=== PATIENT | female | born 1975 | race Caucasian/White ===

== ENCOUNTER 2021-12-07 20:12 | Emergency (ER) | payer MEDICAID, OTHER, SELFPAY ==
--- NOTE | ~2021-12-07 | XR_ITS ---
EXAMINATION: XR hand wrist RT CLINICAL INFORMATION: Reason for Exam R wrist swelling COMPARISON: None. TECHNIQUE: PA, oblique and lateral views FINDINGS: No acute fracture or dislocation. Possible old healed fracture of the proximal fourth metacarpal Joint spaces and articular surfaces are maintained. No erosive changes. Soft tissues unremarkable. XR/XR hand wrist RT IMPRESSION: No acute osseous abnormalities.
[2021-12-07 20:43] VITALS: BP 198/90; PULSE 100; RESP 16; TEMP 36.2; O2SAT 99; BMI 24.8
--- NOTE | 2021-12-07 23:47 | ED.EXTPRO ---
HPI - Extremity Problem General Chief complaint: Extremity Problem Stated complaint: R Wrist pain/ No inj Source: patient Mode of arrival: ambulatory Limitations: language barrier History of Present Illness HPI Narrative: 46-year-old female presents with over 1 month of right wrist pain, with an episode of swelling that occurred today that has now resolved. She states that the pain was so bad today that she could not move her fingers. At the present time, she has full range of motion to the wrist an [id number] wrist support on. She does not report fevers or chills, injury, decreased range of motion, or loss of sensation. MD Complaint: extremity pain Onset (ago): month(s) (1) Pain Consistency: intermittent Location: right and upper extremity Severity scale (1-10): 5 Quality: aching Radiation: none Relieving factors: rest Exacerbating factors: range of motion and exertion Associated symptoms: denies other symptoms Related Data Allergies Allergy/AdvReac Type Severity Reaction Status Date / Time No Known Allergies Allergy Verified 12/07/21 20:42 Review of Systems Review of Systems: Constitutional: No Fever, No Chills ENT/Mouth: No Ear Pain, No Hoarseness, No sore throat Eyes: No Eye Pain, No Swelling, No Redness, No Foreign Body Cardiovascular: No Chest Pain, No SOB Respiratory: No Cough, No Dyspnea Gastrointestinal: No Nausea, No Vomiting, No Diarrhea, No abdominal Pain Genitourinary: No Dysuria, No Hematuria Musculoskeletal: positive right wrist pain, No Myalgias, No Joint Swelling Skin: No Skin lacerations, No rash Neuro: No Weakness, No Numbness, No Paresthesias, No Loss of Consciousness, No Dizziness, No Headache Psych: No Anxiety/Panic, No Depression Heme/Lymph: no easy bruising, no Lymphadenopathy Endocrine: No Polyuria, No Polydipsia Yes all other systems are reviewed and are negative [facility] Past Medical History Attestation statement: The following information was validated with the patient. Source: old records reviewed Social History Social History Advance Directives: No Advance Directives Information Provided: No Physical Exam Vital Signs: Vital Signs: Last Vital Signs Temp 97.1 F 12/07/21 20:43 Pulse 100 12/07/21 20:43 Resp 16 12/07/21 20:43 BP 198/90 H 12/07/21 20:43 Pulse Ox 99 12/07/21 20:43 O2 Del Method 12/07/21 20:43 BMI result Body Mass Index 24.8 Appearance: Alert. Oriented X3. No acute distress. Eyes: Pupils equal, round and reactive to light. ENT: Pharynx normal. Neck: Normal inspection. Neck supple. CVS: Normal heart rate and rhythm. Pulses normal. Respiratory: No respiratory distress. Breath sounds normal. Abdomen: Soft and nontender. Skin: Skin warm and dry. Normal skin color. Normal skin turgor. Extremities: No lower extremity edema. Negative Phalen test, negative Jagdish, negative de Quervain. Full range of motion, no tenderness to palpation. No appreciable swelling. Full range of motion strength 5/5 to all digits. Brisk capillary refill equal pulses. Neuro: No motor deficit. No sensory deficit. Cranial nerves 2-12 intact. Course Course Course Narrative: 46-year-old female presents with 1 month of right wrist pain, worsened today stating that she could not move her fingers and had some swelling that has now resolved. X-rays were completed while patient was in the emergency department waiting room. Negative for fracture dislocation. Patient does have negative Phalen, negative de Quervain test, negative Jagdish. Patient is afebrile and nontoxic. Will have patient follow-up with urgent care and also to establish primary care physician. Will place patient in a velcro splint for comfort. Low likelihood for DVT as there is no appreciable swelling, patient is not on immunosuppressants or hormones, no recent flights, or injuries. Patient's daughter is interpreting for [place]. [employer] translate utilized for discharge instructions. Patient verbalized understanding of and agrees to plan of care discharge home. Verbalized understanding of signs and symptoms indicating need for emergent intervention. MDM - Extremity (Nontraumatic) MDM Narrative Medical decision making narrative: Fracture, dislocation, effusion, tenosynovitis, carpal tunnel, de Quervain tendinitis Differential Diagnosis Differential diagnosis: Likely deep venous thrombosis of upper extremity Medical Records Attestation: I reviewed the patient's medical records. Imaging Data Right wrist x-ray: Attestation: I personally reviewed and interpreted this imaging study as follows: Radiologist's impression: EXAMINATION: XR hand wrist RT CLINICAL INFORMATION: Reason for Exam R wrist swelling COMPARISON: None. TECHNIQUE: PA, oblique and lateral views FINDINGS: No acute fracture or dislocation. Possible old healed fracture of the proximal fourth metacarpal Joint spaces and articular surfaces are maintained. No erosive changes. Soft tissues unremarkable. XR/XR hand wrist RT IMPRESSION: No acute osseous abnormalities.? Discharge Plan Discharge Clinical Impression: Acute pain of right wrist Patient Disposition: Home, Self-Care Instructions: Wrist Injury (ED) Additional Instructions: Voc? apresentou por aproximadamente 1 m?s de tano no pulso direito. As radiografias s?o negativas para achados agudos que requerem interven??o emergente. Colocamos voc? em [place] de pulso de velcro. Use essa parish para o conforto. Descanse, coloque akil e eleve o pulso para reduzir a tano e o incha?o. Acompanhamento com [facility]. Eu o encaminhei para o Dr. Key. Por favor, acompanhe na pr?xima semana. [place] Tylenol 650 mg a cada 6 horas conforme necess?kelsie e Motrin 600 mg a cada 6 horas conforme necess?kelsie para o controle da tano. Anote a que horas voc? olman esses medicamentos para evitar overdose acidental. Obrigado por escolher tamera pronto-cecille para avalia??o. Por favor, fa?a o acompanhamento com o m?dico de cuidados prim?garg, conforme necess?kelsie. Retorne ao departamento de emerg?ncia para quaisquer sintomas novos, preocupantes ou agravantes. You presented for approximately 1 month of right wrist pain. X-rays are negative for acute findings requiring emergent intervention. We placed you in a velcro wrist splint. Use that splint for comfort. Rest, ice and elevate the wrist to reduce pain and swelling. Follow-up with [facility]. I have referred you to Dr. Key. Please follow-up next week. Take Tylenol 650 mg every 6 hours as needed and Motrin 600 mg every 6 hours as needed for pain management. Write down what time you take these medications to prevent accidental overdose. Thank you for choosing this emergency department for evaluation. Please follow-up with primary care physician as needed. Return to the emergency department for any new, concerning, or worsening symptoms. Referrals: Janusz Key MD [Physician] - 1 week ([facility] urgent care) Interventions: ED Discharge Assessment Last Done: 12/08/21 00:47 Discharge Date/Time: 12/08/21 00:48
== END 2021-12-08 00:48 | disposition home or self-care (01) ==
PROVIDERS: Emergency Provider Internal Medicine
DX: M25.531 Pain in right wrist (principal)
CPT/HCPCS: 73110; 73130; 99283; 99284